=== PATIENT | female | born 1965 | race African-American/Black ===

== ENCOUNTER 2019-04-20 17:27 | Inpatient (IN) | payer OTHER ==
[2019-04-20 18:48] VITALS: BMI 21.1
--- NOTE | 2019-04-20 20:26 | HP ---
"COWS - Scale Resting Pulse: 1= IA 81-100 Sweatin= Chills/Flushing Restless Observation: 0= Sits Still Pupil Size: 2= Moderately Dilated (Pupils = 5 mm) Bone or Joint Aches: 1= Mild Discomfort Runny Nose/ Eye Tearin= None GI Upset > 30mins: 0= None Tremor Observation: 2= Slight Tremor Visible Yawning Observation: 0= None Anxiety or Irritability: 2=Irritable/Anxious Goose Flesh Skin: 0=Smooth Skin COWS Score: 9 CIWA Score Nausea/Vomitin-No Nausea/No Vomiting Muscle Tremors: 3 Anxiety: 4-Mod. Anxious/Guarded Agitation: 1-Slight > Activity Paroxysmal Sweats: 3 (Increased facial moisture) Orientation: 0-Oriented Tacttile Disturbances: 0-None Auditory Disturbances: 0-None Visual Disturbances: 0-None Headache: 0-None Present CIWA-Ar Total Score: 11 - Admission Criteria OASAS Guidelines: Admission for Medically Managed Detox: Requires at least one of the followin. CIWA greater than 12 2. Seizures within the past 24 hours 3. Delirium tremens within the past 24 hours 4. Hallucinations within the past 24 hours 5. Acute intervention needed for co occurring medical disorder 6. Acute intervention needed for co occurring psychiatric disorder 7. Severe withdrawal that cannot be handled at a lower level of care (continued vomiting, continued diarrhea, abnormal vital signs) requiring intravenous medication and/or fluids 8. Patient presents the following: Acute intervention needed for co-occurring med or psych disorder Admission Criteria Met: Admission criteria met Admitting History and Physical - Past Medical History ...LMP: 09/12/11 - Smoking History Smoking history: Current every day smoker Have you smoked in the past 12 months: Yes Aproximately how many cigarettes per day: 5 - Alcohol/Substance Use Hx Alcohol Use: Yes (reports drinking since 33 yo,3 6 packs daily) Admission [facility] Chief Complaint: Here for detox from heroin and alcohol Allergies/Adverse Reactions: Allergies Allergy/AdvReac Type Severity Reaction Status Date / Time No Known Allergies Allergy Verified 04/20/19 18:31 History of Present Illness: 52 yo presents w/heroin withdrawal seeking detox. Last detox in 1-2 months ago. VIVIANA: 0.0 UTox: + FEN/MOP/OXY/MTD/BZO Was on Methadone @ [facility] and left 1 month ago. States dose was 25 mg. States left because relapsed. States just stopped showing up. Methadone in urine - denies recent use despite (+) toxicology. Heroin use began at age 33. Current use 5-6 bags/day. Nasal x 3 weeks. Has a Narcan kit Nicotine use began at age 18's. Currently smokes 4-5 cig/day Alcohol use began at age 18. Drinks 4-5 - 12 oz beers daily. Benzo - denies pills despite presence in urine. PMHX: RPR + (medicated), PPD+; CXR @ [facility]: 02/19/18: Neg. States had a CXR 1 mth ago - wnl. EK02/07/18: Abnormal. MHHx: Anxiety. Insomnia. Depression. On MH meds. Sees a Psych in community. Denies thoughts of harming self or others. Longest period of sobriety two years. Denies hx of seizure or blackouts or overdose. Search Terms: Cintia Abarca, 1965 Search Date: 04/20/2019 08:24:29 PM The Drug Utilization Report below displays all of the controlled substance prescriptions, if any, that your patient has filled in the last twelve months. The information displayed on this report is compiled from pharmacy submissions to the Department, and accurately reflects the information as submitted by the pharmacies. This report was requested by: Lillian Nix | Reference #: [id number] There are no results for the search terms that you entered. Search Terms: Cintia Abarca, 1965 Search Date: 04/20/2019 08:25:15 PM States Searched: [place], [place], [place], [place], [place], [place], [place], [place] The Drug Utilization Report below displays the controlled substance prescriptions, if any, that were dispensed in the indicated state(s). The information displayed on this report is compiled from requests submitted to other states' PMPs, and accurately reflects the information as returned by them. Blank guillen indicate data not provided by other state. This report was requested by: Lillian Nix | Reference #: [id number] There are no results for the search terms that you entered. Exam Limitations: No Limitations - Ebola screening Have you traveled outside of the country in the last 21 days: No (N) Have you had contact with anyone from an Ebola affected area: No Have you been sick,other than usual withdrawal symptoms: No Do you have a fever: No - Review of Systems Constitutional: Changes in sleep (Difficluty fallin and staying asleep), Weight Stable EENT: reports: Blurred Vision, Dental Problems (Dentures. Chews and swallows ok) Respiratory: reports: No Symptoms reported Cardiac: reports: No Symptoms Reported GI: reports: No Symptoms Reported : reports: No Symptoms Reported Musculoskeletal: reports: Back Pain (Chronic intermittent achy LBP. No pain at this time. Unsure of triggers.), Joint Pain (Intermittent achy (L) shoulder pain. Unsure of triggers.) Integumentary: reports: No Symptoms Reported Neuro: reports: No Symptoms reported Endocrine: reports: Increased Thirst Hematology: reports: No Symptoms Reported Psychiatric: reports: Orientated x3, Agitated, Anxious, Depressed ( Denies thoughts of harming self or others.) Patient History - Patient Medical History Hx Anemia: No Hx Asthma: Yes Hx Chronic Obstructive Pulmonary Disease (COPD): No Hx Cancer: No Hx Cardiac Disorders: No Hx Congestive Heart Failure: No Hx Hypertension: No Hx Hypercholesterolemia: Yes Hx Pacemaker: No HX Cerebrovascular Accident: No Hx Seizures: No Hx Dementia: No Hx Diabetes: No Hx Gastrointestinal Disorders: No Hx Liver Disease: No Hx Genitourinary Disorders: No Hx Sexually Transmitted Disorders: No Hx Renal Disease (ESRD): No Hx Thyroid Disease: No Hx Human Immunodeficiency Virus (HIV): No Hx Hepatitis C: No Hx Depression: Yes Hx Suicide Attempt: No Hx Bipolar Disorder: No Hx Schizophrenia: No - Patient Surgical History Past Surgical History: No Hx Neurologic Surgery: No Hx Cataract Extraction: No Hx Cardiac Surgery: No Hx Lung Surgery: No Hx Breast Surgery: No Hx Breast Biopsy: No Hx Abdominal Surgery: No Hx Appendectomy: No Hx Cholecystectomy: No Hx Genitourinary Surgery: No Hx Section: No Hx Orthopedic Surgery: No - PPD History Previous Implant?: Yes (CXR - 02/19/18) Documented Results: Positive w/o proof Implanted On Prior R Admission?: No PPD to be Administered?: No - Reproductive History Patient is a Female of Child Bearing Age (11 -55 yrs old): Yes Last Menstrual Period: 09/12/11 Patient : No - Smoking Cessation Smoking history: Current every day smoker Have you smoked in the past 12 months: Yes Aproximately how many cigarettes per day: 5 Hx Chewing Tobacco Use: No Initiated information on smoking cessation: Yes 'Breaking Loose' booklet given: 04/20/19 - Substance & Tx. History Hx Alcohol Use: Yes Hx Substance Use: Yes Substance Use Type: Alcohol, Heroin, Opiates Hx Substance Use Treatment: Yes (detox, rehab, recent MMTP) - Substances abused Heroin Substance route: Inhalation Frequency: Daily Amount used: 3 to 4 bags Age of first use: 33 Date of last use: 04/20/19 Alcohol Substance route: Oral Frequency: Daily Amount used: 4 to 5 cans /6 packs of beer Age of first use: 18 Date of last use: 04/20/19 Admission Physical Exam S - Vital Signs Vital Signs: Vital Signs - 24 hr 04/20/19 04/20/19 18:38 19:33 Temperature 98.2 F 98.2 F Pulse Rate 87 87 Respiratory 16 16 Rate Blood Pressure 106/68 106/68 - Physical General Appearance: Yes: Nourished, Mild Distress, Tremorous (Mild), Irritable, Sweating (Increased facial moisture), Anxious HEENTM: Yes: EOMI (Jerking movement of eyes upon lateral gaze), Hearing grossly Normal, Normocephalic, Normal Voice, KENNA (Pupils = 5 mm), Pharynx Normal Respiratory: Yes: Lungs Clear (Pulse Ox = 97 %), Normal Breath Sounds, No Respiratory Distress Neck: Yes: No masses,lesions,Nodules, Supple Breast: Yes: Breast Exam Deferred Cardiology: Yes: Regular Rhythm, Regular Rate, S1, S2, Murmur Abdominal: Yes: Non Tender, Flat, Soft, Increased Bowel Sounds Genitourinary: Yes: Within Normal Limits Back: Yes: Normal Inspection Musculoskeletal: Yes: full range of Motion, Gait Steady Extremities: Yes: Normal Capillary Refill 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 NML intact (Jerking movement of eyes upon lateral gaze), Fully Oriented, Alert, Motor Strength 5/5, Normal Response Integumentary: Yes: Normal Color, Warm, Rash (Dry, flaky, thickened skin on legs , feet, arms and hands and), Other (Flaky, skin and cracks between toes) Lymphatic: Yes: Within Normal Limits - Diagnostic (1) History of positive PPD Current Visit: Yes Status: Chronic (2) History of syphilis Current Visit: Yes Status: Chronic (3) Alcohol dependence with withdrawal Current Visit: Yes Status: Acute Qualifiers: Complication of substance-induced condition: uncomplicated Qualified Code(s ): F10.230 - Alcohol dependence with withdrawal, uncomplicated (4) Opioid dependence with withdrawal Current Visit: Yes Status: Acute (5) Nicotine dependence Current Visit: Yes Status: Chronic Qualifiers: Nicotine product type: cigarettes (6) Unspecified nystagmus Current Visit: Yes Status: Acute (7) Cardiac murmur Current Visit: Yes Status: Acute Cleared for Admission [facility] - Detox or Rehab [facility] Level of Care: Medically Managed Detox Regimen/Protocol: Methadone/Librium Claeared for Rehab Admission: No Breathalyzer - Breathalyzer Breathalyzer: 0 Urine Drug Screen - Test Device Lot number: [id number] Expiration date: 12/19/20 - Control Is test valid?: Yes - Results Drug screen NEGATIVE: No Urine drug screen results: FEN-Fentanyl, MOP-Opiates, OXY-Oxycodone, MTD- Methadone, BZO-Benzodiazepines Inpatient Rehab Admission - Rehab Decision to Admit Inpatient rehab admission?: No"
[2019-04-20] MEDS ORDERED: ACETAMINOPHEN 325 MG TABLET (FP) PO PRN ×2 (21:04)
[2019-04-20] MEDS ORDERED: BISMUTH SUBSALICYLATE 524 MG/30 ML UD PO PRN (21:04)
[2019-04-20] MEDS ORDERED: MAG HYDROX/AL HYDROX/SIMETH 30 ML UNIT-DOSE CUP PO PRN (21:04)
[2019-04-20] MEDS ORDERED: MAGNESIUM CITRATE 300 ML BOTTLE PO PRN (21:04)
[2019-04-20] MEDS ORDERED: MENTHOL/PHENOL 1 EACH UD MM PRN (21:04)
[2019-04-20] MEDS ORDERED: MELATONIN 5 MG TABLETS PO PRN (21:04)
[2019-04-20] MEDS ORDERED: MAGNESIUM HYDROX 2400MG/30ML ORAL SUSPENSION 30 ML CUP PO PRN (21:04)
[2019-04-20] MEDS ORDERED: METHADONE (DETOX) 10 MG, METHADONE (DETOX) 5 MG PO ONE (22:15)
[2019-04-20] MEDS ORDERED: METHADONE HCL 5 MG TABLET (FOR DETOX USE ONLY) ONE (22:51)
[2019-04-20] MEDS ORDERED: METHADONE HCL 10 MG TABLET (FOR DETOX USE ONLY) ONE (22:51)
[2019-04-20] MEDS: THIAMINE HCL 100 MG TABLET (FP) PO SCH (22:55)
[2019-04-20] MEDS ORDERED: METHADONE HCL 10 MG TABLET (FOR DETOX USE ONLY) PO ONE (23:00)
[2019-04-20] MEDS ORDERED: QUEtiapine FUMARATE 100 MG TABLET (FP) PO ONE (23:00)
[2019-04-21] MEDS: chlordiazePOXIDE HCL 10 MG CAPSULE PO PRN ×2 (05:50→22:12)
[2019-04-21] MEDS ORDERED: COLLOIDAL OATMEAL 1 BAR EACH TP PRN (08:33)
--- NOTE | 2019-04-21 09:01 | CONSULT ---
[facility] Psychiatric Consult - Data Date of interview: 04/21/19 Admission source: Self-referred Identifying data: Ms Abarca is a 53 years old single Black female, mother of a 31 years old son, unemployed receiving public assistance, homeless seeking detox treatment for alcohol and opioid Substance Abuse History: Reports history of alcohol and heroin use. Refer to addiction counselor's summary for further information Medical History: Significant for bronchial asthma, history of treatment PPD+ and syphilis. Smokes 4-5 cigarettes Psychiatric History: Reports that her first psychiatric contact was as a child when she was diagnosed with ADHD and treated with psychotherapy. Reports being diagnosed with Bipolar Disorder, MDD and Anxiety in 1999 and started on Seroquel and Gabapention. Denies previous psychiatric hospitalization or suicidal atempt. However, reports two previous psychiatric emergency room admissions for observation to [facility] and [facility]. Apparently adherence to OPD care and medications have been suboptimal. Reports taking medications whenever she is admitted to substance abuse programs. [facility] and [facility] [place] [place]. Claims to be prescribed Seroquel 200 m/hs and Gabapentin 300 mg/bid. At present, denies experiencing psychotic, manic symptoms, S/H ideation Physical/Sexual Abuse/Trauma History: Denies history of emotional, physical or sexual abuse as well as DV relationship. Additional Comment: Reports history of multiple previous misdemeanor arrests. Denies being on probation at present Mental Status Exam - Mental Status Exam Alert and Oriented to: Time, Place, Person Cognitive Function: Fair Patient Appearance: Well Groomed Mood: Depressed, Anxious Affect: Appropriate Patient Behavior: Cooperative Speech Pattern: Clear Thought Process: Intact, Goal Oriented Thought Disorder: Not Present Hallucinations: Denies Suicidal Ideation: Denies Homicidal Ideation: Denies Insight/Judgement: Poor Sleep: Poorly Appetite: Poor Muscle strength/Tone: Normal Gait/Station: Normal Psychiatric Findings - Problem List (Perkins 1, 2,3) (1) ADHD (attention deficit hyperactivity disorder) Current Visit: Yes Status: Acute (2) Mood disorder Current Visit: Yes Status: Chronic (3) Bipolar disorder Current Visit: Yes Status: Ruled-out (4) Substance induced mood disorder Current Visit: Yes Status: Acute (5) Substance-induced sleep disorder Current Visit: Yes Status: Acute (6) Alcohol dependence with withdrawal Current Visit: Yes Status: Acute Qualifiers: Complication of substance-induced condition: uncomplicated Qualified Code(s ): F10.230 - Alcohol dependence with withdrawal, uncomplicated (7) Opioid dependence with withdrawal Current Visit: Yes Status: Acute (8) Nicotine dependence Current Visit: Yes Status: Chronic Qualifiers: Nicotine product type: cigarettes (9) Bronchial asthma Current Visit: Yes Status: Chronic (10) History of positive PPD Current Visit: Yes Status: Resolved (11) History of syphilis Current Visit: Yes Status: Resolved - Initial Treatment Plan Initial Treatment Plan: 1) Resume Seroquel 200 mg po HS. 2) Continue inpatient detoxification
[2019-04-21] MEDS: NICOTINE 7 MG/24 HOURS TOPICAL PATCH TD SCH (09:46)
[2019-04-21] MEDS: PRENATAL VITAMINS W/ FOLIC ACID TABLET (FP) PO SCH (09:46)
[2019-04-21] MEDS ORDERED: PETROLATUM, WHITE 30 GM TUBE TP SCH (10:00)
[2019-04-21] MEDS ORDERED: METHADONE HCL 5 MG TABLET (FOR DETOX USE ONLY) PO ONE (10:00)
[2019-04-21 10:12] LABS: HEMATOCRIT 37.7 % (32.4-45.2); HEMOGLOBIN 12.5 GM/dL (10.7-15.3); MCH 30.4 pg (25.7-33.7); MCHC 33.1 g/dl (32.0-36.0); MEAN PLT VOLUME 9.3 fl (7.5-11.1); PLATELET COUNT 227 K/MM3 (134-434); RDW 13.3 % (11.6-15.6); WHITE BLOOD COUNT 5.5 K/mm3 (4.0-10.0)
--- NOTE | 2019-04-21 10:20 | PN ---
[facility] CIWA - CIWA Score Nausea/Vomitin-No Nausea/No Vomiting Muscle Tremors: 3 Anxiety: 3 Agitation: 3 Paroxysmal Sweats: 3 Orientation: 0-Oriented Tacttile Disturbances: 0-None Auditory Disturbances: 0-None Visual Disturbances: 0-None Headache: 0-None Present CIWA-Ar Total Score: 12 BHS COWS - Scale Resting Pulse: 0= [place] 80 or Below Sweatin= Chills/Flushing Restless Observation: 1= Difficult to Sit Still Pupil Size: 0= Normal to Room Light Bone or Joint Aches: 2= Severe Diffuse Aches Runny Nose/ Eye Tearin= None GI Upset > 30mins: 0= None Tremor Observation of Outstretched Hands: 2= Slight Tremor Visible Yawning Observation: 2= >3x During Session Anxiety or Irritability: 2=Irritable/Anxious Goose Flesh Skin: 0=Smooth Skin COWS Score: 10 BHS Progress Note (SOAP) Subjective: sweats shakes interrupted sleep body aches dry skin/eczema irritable Objective: 04/21/19 10:19 Vital Signs Temperature 97.2 F L 04/21/19 09:35 Pulse Rate 77 04/21/19 09:35 Respiratory Rate 18 04/21/19 09:35 Blood Pressure 111/62 04/21/19 09:35 O2 Sat by Pulse Oximetry (%) Laboratory Tests 04/21/19 08:00 WBC 5.5 RBC 4.10 Hgb 12.5 Hct 37.7 MCV 92.0 MCH 30.4 MCHC 33.1 RDW 13.3 Plt Count 227 MPV 9.3 rest of labs pending aaox3 ambulating no acute distress Assessment: 04/21/19 10:20 withdrawals Plan: continue detox increase fluids lac-hydrin ordered aveeno soap
[2019-04-21 11:06] LABS: ALBUMIN 3.5 g/dl (3.4-5.0); BILIRUBIN,TOTAL 0.3 mg/dL (0.2-1); BLOOD UREA NITROGEN 8.2 mg/dL (7-18); CREATININE 0.8 mg/dL (0.55-1.3); TOT PROT 6.6 g/dl (6.4-8.2)
[2019-04-21 11:45] LABS: RPR REACTIVE 1:1 (NONREACTIVE)
[2019-04-21 11:46] LABS: TREPONEMA ANTIBODY PREVIOUSLY REACTIVE (NONREACTIVE)
--- NOTE | 2019-04-21 12:25 | EKG ---
Test Reason : Blood Pressure : / mmHG Vent. Rate : 074 BPM Atrial Rate : 074 BPM P-R Int : 136 ms QRS Dur : 086 ms QT Int : 424 ms P-R-T Axes : 076 071 073 degrees QTc Int : 470 ms NORMAL SINUS RHYTHM NORMAL ECG WHEN COMPARED WITH ECG OF 28-JAN-2018 21:45, NO SIGNIFICANT CHANGE WAS FOUND Confirmed by BESSIE CONTRERAS MD ([id number]) on 04/21/2019 12:24:45 PM Referred By: Confirmed By:BESSIE CONTRERAS MD
[2019-04-21] MEDS: AMMONIUM LACTATE 12% LOTION 225 GM BOTTLE TP PRN (12:40)
[2019-04-21] MEDS: QUEtiapine FUMARATE 200 MG TABLET PO SCH (22:10)
[2019-04-21] MEDS: THIAMINE HCL 100 MG TABLET (FP) PO SCH (22:10)
[2019-04-22] MEDS: IBUPROFEN 400 MG TABLET (FP) PO PRN (06:01)
[2019-04-22] MEDS ORDERED: METHADONE HCL 10 MG TABLET (FOR DETOX USE ONLY) PO ONE (10:00)
[2019-04-22] MEDS: NICOTINE 7 MG/24 HOURS TOPICAL PATCH TD SCH (10:44)
[2019-04-22] MEDS: PRENATAL VITAMINS W/ FOLIC ACID TABLET (FP) PO SCH (10:45)
--- NOTE | 2019-04-22 12:13 | PN ---
[facility] CIWA - CIWA Score Nausea/Vomitin-No Nausea/No Vomiting Muscle Tremors: 2 Anxiety: 2 Agitation: 2 Paroxysmal Sweats: 2 Orientation: 0-Oriented Tacttile Disturbances: 0-None Auditory Disturbances: 0-None Visual Disturbances: 0-None Headache: 0-None Present CIWA-Ar Total Score: 8 BHS COWS - Scale Resting Pulse: 0= [place] 80 or Below Sweatin= Chills/Flushing Restless Observation: 1= Difficult to Sit Still Pupil Size: 0= Normal to Room Light Bone or Joint Aches: 1= Mild Discomfort Runny Nose/ Eye Tearin= Nasal Congestion GI Upset > 30mins: 0= None Tremor Observation of Outstretched Hands: 1= Tremor [place], Not Seen Yawning Observation: 1= 1-2x During Session Anxiety or Irritability: 1=Feels Anxious/Irritable Goose Flesh Skin: 0=Smooth Skin COWS Score: 7 S Progress Note (SOAP) Subjective: irritable agitation sweats irritable Objective: 04/22/19 12:12 Vital Signs Temperature 96.3 F L 04/22/19 09:42 Pulse Rate 70 04/22/19 09:42 Respiratory Rate 18 04/22/19 09:42 Blood Pressure 112/72 04/22/19 09:42 O2 Sat by Pulse Oximetry (%) Laboratory Tests 04/21/19 04/21/19 04/21/19 08:00 08:00 08:00 WBC 5.5 RBC 4.10 Hgb 12.5 Hct 37.7 MCV 92.0 MCH 30.4 MCHC 33.1 RDW 13.3 Plt Count 227 MPV 9.3 Sodium 140 Potassium 4.0 Chloride 104 Carbon Dioxide 30 Anion Gap 6 L BUN 8.2 Creatinine 0.8 Est GFR (CKD-EPI)AfAm 96.19 Est GFR (CKD-EPI)NonAf 83.00 Random Glucose 85 Calcium 9.0 Total Bilirubin 0.3 AST 23 ALT 27 Alkaline Phosphatase 96 Total Protein 6.6 Albumin 3.5 RPR Titer Reactive 1:1 H T.pallidum Ab (MHA) Previously reactive aaox3 ambulating no acute distress Assessment: 04/22/19 12:13 withdrawals Plan: continue detox increase fluids
[2019-04-22] MEDS: AMMONIUM LACTATE 12% LOTION 225 GM BOTTLE TP PRN (22:09)
[2019-04-22] MEDS: chlordiazePOXIDE HCL 10 MG CAPSULE PO PRN (22:11)
[2019-04-22] MEDS: THIAMINE HCL 100 MG TABLET (FP) PO SCH (22:11)
[2019-04-22] MEDS: QUEtiapine FUMARATE 200 MG TABLET PO SCH (22:11)
[2019-04-23] MEDS ORDERED: METHADONE HCL 5 MG TABLET (FOR DETOX USE ONLY) PO ONE (06:00)
--- NOTE | 2019-04-23 08:52 | DS ---
[facility] Detox Discharge Summary Admission Date: 04/20/19 Discharge Date: 04/23/19 - History Present History: Alcohol Dependence, Cocaine Dependence, Opioid Dependence - Physical Exam Results Vital Signs: Vital Signs Temperature 97.7 F 04/23/19 05:46 Pulse Rate 73 04/23/19 05:46 Respiratory Rate 16 04/23/19 05:46 Blood Pressure 120/76 04/23/19 05:46 O2 Sat by Pulse Oximetry (%) Pertinent Admission Physical Exam Findings: pt arrived in withdrawals Vital Signs Temperature 97.7 F 04/23/19 05:46 Pulse Rate 73 04/23/19 05:46 Respiratory Rate 16 04/23/19 05:46 Blood Pressure 120/76 04/23/19 05:46 O2 Sat by Pulse Oximetry (%) Laboratory Tests 04/21/19 04/21/19 04/21/19 08:00 08:00 08:00 WBC 5.5 RBC 4.10 Hgb 12.5 Hct 37.7 MCV 92.0 MCH 30.4 MCHC 33.1 RDW 13.3 Plt Count 227 MPV 9.3 Sodium 140 Potassium 4.0 Chloride 104 Carbon Dioxide 30 Anion Gap 6 L BUN 8.2 Creatinine 0.8 Est GFR (CKD-EPI)AfAm 96.19 Est GFR (CKD-EPI)NonAf 83.00 Random Glucose 85 Calcium 9.0 Total Bilirubin 0.3 AST 23 ALT 27 Alkaline Phosphatase 96 Total Protein 6.6 Albumin 3.5 RPR Titer Reactive 1:1 H T.pallidum Ab (MHA) Previously reactive today pt is aaox3 ambulating no acute distress no s/s of withdrawals - Treatment Hospital Course: Detox Protocol Followed, Detoxed Safely, Responded well, Discharged Condition Good, Rehab Referral Accepted - Medication Discharge Medications: Ambulatory Orders Albuterol Sulfate Inhaler - [Ventolin HFA Inhaler -] 2 puff IH Q4H PRN 01/28/18 Melatonin 5 mg PO HS 01/28/18 Gabapentin 100 mg PO TID 01/29/18 Quetiapine Fumarate "Xr" [Seroquel XR] 200 mg PO HS 01/29/18 Gabapentin [Neurontin -] 400 mg PO TID #90 capsule 02/10/18 Mirtazapine [Remeron -] 25 mg PO HS 04/20/19 - Diagnosis (1) ADHD (attention deficit hyperactivity disorder) Current Visit: Yes Status: Acute (2) Alcohol dependence with withdrawal Current Visit: Yes Status: Chronic Qualifiers: Complication of substance-induced condition: uncomplicated Qualified Code(s ): F10.230 - Alcohol dependence with withdrawal, uncomplicated (3) Cardiac murmur Current Visit: Yes Status: Acute (4) Opioid dependence with withdrawal Current Visit: Yes Status: Chronic (5) Substance induced mood disorder Current Visit: Yes Status: Acute (6) Substance-induced sleep disorder Current Visit: Yes Status: Acute (7) Bronchial asthma Current Visit: Yes Status: Chronic (8) Mood disorder Current Visit: Yes Status: Chronic (9) Nicotine dependence Current Visit: Yes Status: Chronic Qualifiers: Nicotine product type: cigarettes Substance use status: uncomplicated Qualified Code(s): F17.210 - Nicotine dependence, cigarettes, uncomplicated (10) History of positive PPD Current Visit: Yes Status: Resolved (11) History of syphilis Current Visit: Yes Status: Resolved (12) Bipolar disorder Current Visit: Yes Status: Ruled-out (13) Depressed mood Current Visit: No Status: Acute (14) Asthma Current Visit: No Status: Chronic Qualifiers: (15) Bipolar II disorder Current Visit: No Status: Chronic (16) Cocaine dependence Current Visit: Yes Status: Chronic Qualifiers: Substance use status: uncomplicated Qualified Code(s): F14.20 - Cocaine dependence, uncomplicated (17) Opioid dependence Current Visit: Yes Status: Chronic Qualifiers: Substance use status: uncomplicated Qualified Code(s): F11.20 - Opioid dependence, uncomplicated (18) Positive PPD Current Visit: No Status: Inactive - AMA Did Patient Leave Against Medical Advice: No
[2019-04-23 09:31] VITALS: BP 108/70; PULSE 81; TEMP 97.9
[2019-04-23] MEDS: IBUPROFEN 400 MG TABLET (FP) PO PRN (09:52)
[2019-04-23] MEDS: NICOTINE 7 MG/24 HOURS TOPICAL PATCH TD SCH (10:29)
[2019-04-23] MEDS: PRENATAL VITAMINS W/ FOLIC ACID TABLET (FP) PO SCH (10:29)
== END 2019-04-23 12:05 | disposition other institution (70) | DRG 773 ==
LOC: YASAS 17:27 → Y6N 20:19
PROVIDERS: ADMIT Allergy & Immunology; ATTEND Allergy & Immunology
PROC: HZ2ZZZZ Detoxification Services for Substance Abuse Treatment (ICD-10-PCS; principal; 2019-04-20)
DX: F11.23 Opioid dependence with withdrawal (principal); F10.230 Alcohol dependence with withdrawal, uncomplicated; F14.20 Cocaine dependence, uncomplicated; F17.210 Nicotine dependence, cigarettes, uncomplicated; F90.9 Attention-deficit hyperactivity disorder, unspecified type; F19.24 Other psychoactive substance dependence with psychoactive substance-induced mood disorder; F19.282 Other psychoactive substance dependence with psychoactive substance-induced sleep disorder; F39 Unspecified mood [affective] disorder; F31.81 Bipolar II disorder; R01.1 Cardiac murmur, unspecified; J45.909 Unspecified asthma, uncomplicated; R76.11 Nonspecific reaction to tuberculin skin test without active tuberculosis; H55.00 Unspecified nystagmus; Z87.42 Personal history of other diseases of the female genital tract
CPT/HCPCS: 36415; 80053; 85027; 86593; 86780; 93005; 93010

== ENCOUNTER 2019-04-23 12:01 | Inpatient (IN) | payer OTHER ==
--- NOTE | 2019-04-23 11:47 | HP ---
[facility] Rehab Assess/Revision - Admission History Ad[facility] to Rehab [facility] - Findings Detox History & Physical reviewed: Yes Concur with findings: Yes Inpatient Rehab Admission - Rehab Decision to Admit Inpatient rehab admission?: Yes - Initial Determination Are CD services needed?: Yes Free of communicable disease: Yes Not in need of hospitalization: Yes - Rehab Admission Criteria Previous failed treatment: Yes Poor recovery environment: Yes Comorbidities: Yes Lacks judgement: Yes Patient is meeting Inpatient Rehab admission criteria:: Yes
[~2019-04-23 12:01] MED LIST: ALBUTEROL SO4 8 GM HFA INHALER IH PRN; LOPERAMIDE HCL 2 MG CAPSULE PO PRN; MAG HYDROX/AL HYDROX/SIMETH 30 ML UNIT-DOSE CUP PO PRN; MAGNESIUM CITRATE 300 ML BOTTLE PO PRN; MAGNESIUM HYDROX 2400MG/30ML ORAL SUSPENSION 30 ML CUP PO PRN; MENTHOL/PHENOL 1 EACH UD MM PRN; NICOTINE POLACRILEX 4 MG GUM BUC PRN; P-EPHED 60MG/TRIPROLIDI 2.5MG TABLET PO PRN; guaiFENesin 200 MG/10 ML 10 ML UNIT-DOSE CUPS PO PRN
[2019-04-23] MEDS ORDERED: COLLOIDAL OATMEAL 1 BAR EACH TP ONE (13:00)
[2019-04-23] MEDS ORDERED: PT OWN MED DRAWER 7, Y5N ONE ×2 (16:55→23:25)
[2019-04-23] MEDS: AMMONIUM LACTATE 12% LOTION 225 GM BOTTLE TP PRN (16:55)
[2019-04-23] MEDS: MELATONIN 5 MG TABLETS PO PRN (21:03)
[2019-04-23] MEDS: THIAMINE HCL 100 MG TABLET (FP) PO SCH (21:03)
[2019-04-23] MEDS: QUEtiapine FUMARATE 200 MG TABLET PO SCH (21:03)
[2019-04-24] MEDS: PRENATAL VITAMINS W/ FOLIC ACID TABLET (FP) PO SCH (09:10)
[2019-04-24] MEDS: NICOTINE 21 MG/24 HOURS TOPICAL PATCH TD SCH (09:10)
[2019-04-24] MEDS: hydrOXYzine PAMOATE 50 MG CAPSULE (FP) PO PRN ×2 (11:13→21:42)
[2019-04-24] MEDS: THIAMINE HCL 100 MG TABLET (FP) PO SCH (21:41)
[2019-04-24] MEDS: QUEtiapine FUMARATE 200 MG TABLET PO SCH (21:41)
[2019-04-25] MEDS: ACETAMINOPHEN 325 MG TABLET (FP) PO PRN (06:48)
[2019-04-25] MEDS: NICOTINE 21 MG/24 HOURS TOPICAL PATCH TD SCH (09:56)
[2019-04-25] MEDS: COLLOIDAL OATMEAL 1 BAR EACH TP PRN (09:56)
[2019-04-25] MEDS: hydrOXYzine PAMOATE 50 MG CAPSULE (FP) PO PRN ×3 (09:57→21:51)
[2019-04-25] MEDS: PRENATAL VITAMINS W/ FOLIC ACID TABLET (FP) PO SCH (09:57)
[2019-04-25] MEDS ORDERED: PT OWN MED DRAWER 7, Y5N ONE ×2 (21:03→22:25)
[2019-04-25] MEDS: THIAMINE HCL 100 MG TABLET (FP) PO SCH (21:51)
[2019-04-25] MEDS: QUEtiapine FUMARATE 200 MG TABLET PO SCH (21:51)
--- NOTE | 2019-04-26 09:17 | CONSULT ---
[facility] Psychiatric Consult - Data Date of interview: 04/26/19 Admission source: [facility] Identifying data: Patient is a 54 year old single female, mother of one, unemployed, homeless, and is supported by public assistance. This is one of multiple admissions for patient. Patient admitted to for opiate dependence. Substance Abuse History: - Smoking Cessation. Smoking history: Current every day smoker. Have you smoked in the past 12 months: Yes. Aproximately how many cigarettes per day: 5. Hx Chewing Tobacco Use: No. Initiated information on smoking cessation: Yes. 'Breaking Loose' booklet given: 04/20/19. - Substance & Tx. History. Hx Alcohol Use: Yes. Hx Substance Use: Yes. Substance Use Type : Alcohol, Heroin, Opiates. Hx Substance Use Treatment: Yes (detox, rehab, recent [facility]). - Substances abused. Heroin. Substance route: Inhalation. Frequency: Daily. Amount used: 3 to 4 bags. Age of first use: 33. Date of last use: 04/20/19. Alcohol. Substance route: Oral. Frequency: Daily. Amount used: 4 to 5 cans /6 packs of beer. Age of first use: 18. Date of last use: 04/20/19 Medical History: Significant for bronchial asthma, history of treatment PPD+ and syphilis. Psychiatric History: Patient's [facility] the age of 11. She reports seeing a psychiatrist due to her restlessness behavior, agitation and difficulty focusing. Patient unable to recall her diagnosis and medications prescribed. As an adult Ms. Abarca reports history of three psychiatric hospitalizations from [id number] ([facility], [facility], and most recently [facility]). She reports being hospitalized secondary to depression and mood dyregulation. Ms. Abarca reports past diagnosis of anxiety, depression and bipolar disorder. Her most recent outpatient psychiatric care was by Dr. Barajas one year ago. She reports being prescribed Seroquel 400mg + gabapentin 300mg BID. Since discontinuing her outpatient treatment, Ms. Abarca has been receiving refills from rehab facilities , most recently at the residential program at [place], [place] five months ago in which she was prescribed seroquel 200mg HS + Gabapentin 300mg BID. Patient seen by Dr. Jolly while in detox and was resumed on Seroquel 200mg HS. Patient currently reports difficulty sleeping, feeling sad and irritable. Reports sleeping 3-4 hours per night and is awaking up with lots of energy. No josette noted but patient is slightly irritable. Patient denies history of suicide attempt. Physical/Sexual Abuse/Trauma History: denies. Mental Status Exam - Mental Status Exam Alert and Oriented to: Time, Place, Person Cognitive Function: Good Patient Appearance: Well Groomed Mood: Irritable Affect: Appropriate Patient Behavior: Cooperative Speech Pattern: Appropriate Voice Loudness: Normal Thought Process: Goal Oriented Thought Disorder: Not Present Hallucinations: Denies Suicidal Ideation: Denies Homicidal Ideation: Denies Insight/Judgement: Poor Sleep: Poorly Appetite: Fair Muscle strength/Tone: Normal Gait/Station: Normal Psychiatric Findings - Problem List ([place] 1, 2,3) (1) ADHD (attention deficit hyperactivity disorder) Current Visit: Yes Status: Suspected (2) Substance induced mood disorder Current Visit: Yes Status: Acute (3) Substance-induced sleep disorder Current Visit: Yes Status: Acute (4) Mood disorder Current Visit: Yes Status: Chronic (5) Opioid dependence Current Visit: Yes Status: Chronic Qualifiers: Substance use status: uncomplicated Qualified Code(s): F11.20 - Opioid dependence, uncomplicated - Initial Treatment Plan Initial Treatment Plan: Psychoeducation provided. Detoxification in progress. Will d/c seroquel 200mg HS. Will order Seroquel 300mg HS + gabapentin 200mg BID. Benefits and side effects discussed. Verbal consent given.
[2019-04-26] MEDS ORDERED: PT OWN MED DRAWER 7, Y5N ONE ×2 (10:24→16:55)
[2019-04-26] MEDS: NICOTINE 21 MG/24 HOURS TOPICAL PATCH TD SCH (10:26)
[2019-04-26] MEDS: PRENATAL VITAMINS W/ FOLIC ACID TABLET (FP) PO SCH (10:26)
[2019-04-26] MEDS: hydrOXYzine PAMOATE 50 MG CAPSULE (FP) PO PRN ×2 (10:27→21:41)
[2019-04-26] MEDS: GABAPENTIN 100 MG CAPSULE (FP) PO SCH ×2 (11:00→21:41)
[2019-04-26] MEDS: AMMONIUM LACTATE 12% LOTION 225 GM BOTTLE TP PRN (16:56)
[2019-04-26] MEDS: QUEtiapine FUMARATE 300 MG TABLET PO SCH (21:42)
[2019-04-26] MEDS: THIAMINE HCL 100 MG TABLET (FP) PO SCH (21:43)
[2019-04-27] MEDS: GABAPENTIN 100 MG CAPSULE (FP) PO SCH ×2 (09:28→21:31)
[2019-04-27] MEDS: PRENATAL VITAMINS W/ FOLIC ACID TABLET (FP) PO SCH (09:28)
[2019-04-27] MEDS: hydrOXYzine PAMOATE 50 MG CAPSULE (FP) PO PRN ×2 (09:29→21:31)
[2019-04-27] MEDS: NICOTINE 21 MG/24 HOURS TOPICAL PATCH TD SCH (09:29)
[2019-04-27] MEDS: QUEtiapine FUMARATE 300 MG TABLET PO SCH (21:31)
[2019-04-27] MEDS: THIAMINE HCL 100 MG TABLET (FP) PO SCH (21:32)
[2019-04-28] MEDS: PRENATAL VITAMINS W/ FOLIC ACID TABLET (FP) PO SCH (10:59)
[2019-04-28] MEDS: GABAPENTIN 100 MG CAPSULE (FP) PO SCH ×2 (10:59→23:15)
[2019-04-28] MEDS: NICOTINE 21 MG/24 HOURS TOPICAL PATCH TD SCH (10:59)
[2019-04-28] MEDS: IBUPROFEN 400 MG TABLET (FP) PO PRN (11:03)
[2019-04-28] MEDS: COLLOIDAL OATMEAL 1 BAR EACH TP PRN (11:08)
[2019-04-28] MEDS: QUEtiapine FUMARATE 300 MG TABLET PO SCH (23:15)
[2019-04-28] MEDS: THIAMINE HCL 100 MG TABLET (FP) PO SCH (23:15)
[2019-04-29] MEDS: IBUPROFEN 400 MG TABLET (FP) PO PRN (06:35)
[2019-04-29] MEDS: hydrOXYzine PAMOATE 50 MG CAPSULE (FP) PO PRN (06:35)
[2019-04-29] MEDS ORDERED: PT OWN MED DRAWER 7, Y5N ONE ×2 (07:07→19:27)
[2019-04-29] MEDS: NICOTINE 21 MG/24 HOURS TOPICAL PATCH TD SCH (09:46)
[2019-04-29] MEDS: GABAPENTIN 100 MG CAPSULE (FP) PO SCH ×2 (09:46→21:32)
[2019-04-29] MEDS: PRENATAL VITAMINS W/ FOLIC ACID TABLET (FP) PO SCH (09:47)
[2019-04-29] MEDS: ACETAMINOPHEN 325 MG TABLET (FP) PO PRN (09:48)
--- NOTE | 2019-04-29 12:05 | PN ---
Psychiatric Progress Note Vital Signs: Vital Signs Period Temp Pulse Resp BP Sys/Medina Pulse Ox Last 24 Hr 97.8 F 78 16-18 116/65 Date of Session: 04/29/19 Chief Complaint:: " I want to be taken off seroquel." HPI: Patient admitted to rehab on [facility] for alcohol and opioid dependence. Patient requesting a switch in medications due to feeling lethargic and sedated. ROS: Patient is coherent, alert + oriented X3. Current Medications: Active Medications Generic Name Dose Route Start Last Admin Trade Name Freq PRN Reason Stop Dose Admin Acetaminophen 650 mg 04/23/19 11:47 04/29/19 09:48 Tylenol - PO 650 mg Q4H PRN Administration FEVER Al Hydroxide/Mg Hydroxide 30 ml 04/23/19 11:47 Mylanta Oral Suspension - PO Q6H PRN DYSPEPSIA Albuterol Sulfate 2 puff 04/23/19 11:51 04/29/19 07:10 Ventolin Hfa Inhaler - IH 2 puff Q4H PRN Administration SHORT OF BREATH/WHEEZING Colloidal Oatmeal 1 applic 04/25/19 08:39 04/28/19 11:08 Aveeno Soap - TP 1 bar DAILY PRN Administration HYGEINE Eucalyptus/Menthol/Phenol/Sorbitol 1 each 04/23/19 11:47 Cepastat Lozenge - MM Q4H PRN SORE THROAT Gabapentin 200 mg 04/26/19 10:30 04/29/19 09:46 Neurontin - PO 200 mg BID ALEC Administration Guaifenesin 10 ml 04/23/19 11:47 Robitussin - PO Q6H PRN COUGH Hydroxyzine Pamoate 50 mg 04/23/19 11:47 04/29/19 06:35 Vistaril - PO 50 mg Q4H PRN Administration AGITATION Ibuprofen 400 mg 04/23/19 11:47 04/29/19 06:35 Motrin - PO 400 mg Q6H PRN Administration Pain Level 4-6 Lactic Acid 1 applic 04/23/19 11:50 04/26/19 16:56 Lac-Hydrin 12 TP 1 applic BID PRN Administration DRY SKIN Loperamide HCl 4 mg 04/23/19 11:47 Imodium - PO Q6H PRN DIARRHEA Magnesium Citrate 300 ml 04/23/19 11:47 Citroma - PO Q48H PRN CONSTIPATION Magnesium Hydroxide 30 ml 04/23/19 11:47 Milk Of Magnesia - PO DAILY PRN CONSTIPATION Melatonin 5 mg 04/23/19 22:00 04/23/19 21:03 Melatonin PO 5 mg HS PRN Administration INSOMNIA Nicotine 21 mg 04/24/19 10:00 04/29/19 09:46 Nicoderm Patch - TD Not Given DAILY ALEC Nicotine Polacrilex 4 mg 04/23/19 11:47 Nicorette Gum - BUC Q2H PRN NICOTINE REPLACEMENT RX Multivit/Folic Acid/Iron 1 tab 04/24/19 10:00 04/29/19 09:47 Vitamins (Sjr) - PO Not Given DAILY ALEC Pseudoephedrine/Triprolidine 1 combo 04/23/19 11:47 Actifed - PO TID PRN NASAL CONGESTION Quetiapine Fumarate 300 mg 04/26/19 22:00 04/28/19 23:15 Seroquel - PO Not Given HS ALEC Thiamine HCl 100 mg 04/23/19 22:00 04/28/19 23:15 Vitamin B1 - PO Not Given HS ALEC Medication(s) Change(s): Yes. Current Side Effect: No Lab tests ordered: No Lab tests reviewed: Yes Provider note:: Patient requesting to be taken off seroquel. Patient resumed on seroquel 200mg while in detox after reporting taking it while at [facility] in [facility]. Patient then seen by bid writer while in rehab and seroquel was increased to 300mg after patient reported feeling irritable and stated that she was previously accepting seroquel 300mg before admission to detox at [facility]. Patient is now stating to bid writer that she has not taken seroquel in nearly one year and was only prescribed remeron 30mg while at [facility]. Patient is an unreliable historian as her history which she is speaking of today is not consistent with what was mentioned during her initial consultation. Patient reports feeling lethargic and tired from accepting seroquel. Assembler Camper attempted to lower seroquel dose but patient refused. Patient educated on the differences of type of medications (antipsychotics and antidepressant) but is unwilling to continue to accept seroquel. Will d/c Seroquel 300mg and will order Remeron 15mg HS. No psychosis noted. Total face to face time:: 25 Mental Status Exam - Mental Status Exam Alert and Oriented to: Time, Place, Person Cognitive Function: Good Patient Appearance: Well Groomed Mood: Withdrawn Affect: Mood Congruent Patient Behavior: Fatigued Speech Pattern: Clear Voice Loudness: Moderately Soft/Quiet Thought Process: Goal Oriented Thought Disorder: Not Present Hallucinations: Denies Suicidal Ideation: Denies Homicidal Ideation: Denies Insight/Judgement: Poor Sleep: Fair Appetite: Fair Muscle strength/Tone: Normal Gait/Station: Normal Psychiatric Treatment Plan - Problem List (1) ADHD (attention deficit hyperactivity disorder) Current Visit: Yes (2) Substance induced mood disorder Current Visit: Yes (3) Substance-induced sleep disorder Current Visit: Yes (4) Mood disorder Current Visit: Yes (5) Opioid dependence Current Visit: Yes Qualifiers: Substance use status: uncomplicated Qualified Code(s): F11.20 - Opioid dependence, uncomplicated
[2019-04-29] MEDS: MIRTAZAPINE 15 MG TABLET (FP) PO SCH (21:32)
[2019-04-29] MEDS: MELATONIN 5 MG TABLETS PO PRN (21:32)
[2019-04-29] MEDS: THIAMINE HCL 100 MG TABLET (FP) PO SCH (21:32)
[2019-04-30] MEDS: IBUPROFEN 400 MG TABLET (FP) PO PRN (07:07)
[2019-04-30] MEDS: hydrOXYzine PAMOATE 50 MG CAPSULE (FP) PO PRN ×2 (07:07→21:17)
[2019-04-30] MEDS: PRENATAL VITAMINS W/ FOLIC ACID TABLET (FP) PO SCH (10:45)
[2019-04-30] MEDS: NICOTINE 21 MG/24 HOURS TOPICAL PATCH TD SCH (10:45)
[2019-04-30] MEDS: GABAPENTIN 100 MG CAPSULE (FP) PO SCH ×2 (10:45→21:17)
[2019-04-30] MEDS ORDERED: PT OWN MED DRAWER 7, Y5N ONE ×2 (20:58→23:12)
[2019-04-30] MEDS: MIRTAZAPINE 15 MG TABLET (FP) PO SCH (21:17)
[2019-04-30] MEDS: THIAMINE HCL 100 MG TABLET (FP) PO SCH (21:17)
[2019-05-01] MEDS: PRENATAL VITAMINS W/ FOLIC ACID TABLET (FP) PO SCH (09:38)
[2019-05-01] MEDS: hydrOXYzine PAMOATE 50 MG CAPSULE (FP) PO PRN ×2 (09:39→21:44)
[2019-05-01] MEDS: NICOTINE 21 MG/24 HOURS TOPICAL PATCH TD SCH (09:39)
[2019-05-01] MEDS: GABAPENTIN 100 MG CAPSULE (FP) PO SCH ×2 (09:39→21:45)
[2019-05-01] MEDS: THIAMINE HCL 100 MG TABLET (FP) PO SCH (21:43)
[2019-05-01] MEDS: MIRTAZAPINE 15 MG TABLET (FP) PO SCH (21:44)
[2019-05-01] MEDS ORDERED: PT OWN MED DRAWER 7, Y5N ONE (21:52)
[2019-05-02] MEDS: IBUPROFEN 400 MG TABLET (FP) PO PRN ×2 (06:41→13:45)
[2019-05-02] MEDS: PRENATAL VITAMINS W/ FOLIC ACID TABLET (FP) PO SCH (09:29)
[2019-05-02] MEDS: GABAPENTIN 100 MG CAPSULE (FP) PO SCH ×2 (09:29→21:36)
[2019-05-02] MEDS: NICOTINE 21 MG/24 HOURS TOPICAL PATCH TD SCH (09:46)
[2019-05-02] MEDS ORDERED: PT OWN MED DRAWER 7, Y5N ONE (21:07)
[2019-05-02] MEDS: THIAMINE HCL 100 MG TABLET (FP) PO SCH (21:36)
[2019-05-02] MEDS: MIRTAZAPINE 15 MG TABLET (FP) PO SCH (21:36)
[2019-05-03] MEDS: IBUPROFEN 400 MG TABLET (FP) PO PRN (06:33)
[2019-05-03 07:00] VITALS: TEMP 98
[2019-05-03] MEDS ORDERED: PT OWN MED DRAWER 7, Y5N ONE (08:52)
[2019-05-03] MEDS: NICOTINE 21 MG/24 HOURS TOPICAL PATCH TD SCH (10:02)
[2019-05-03] MEDS: PRENATAL VITAMINS W/ FOLIC ACID TABLET (FP) PO SCH (10:03)
[2019-05-03] MEDS: hydrOXYzine PAMOATE 50 MG CAPSULE (FP) PO PRN ×2 (10:03→21:13)
[2019-05-03] MEDS: GABAPENTIN 100 MG CAPSULE (FP) PO SCH ×2 (10:04→21:12)
--- NOTE | 2019-05-03 10:48 | PN ---
[facility] Progress Note Note: Psychiatric nurse practitoner note: Patient reports receiving remeron 30mg while receiving treatment at residential program at [place], [place] five months ago. Stated to bid writer that she felt satisifed with remeron 30mg. States that it made her mood stable and her sleep was sufficient. Will d/c Remeron 15mg HS. Will order Remeron 30mg HS. Benefits and side effects discussed. Verbal consent given.
--- NOTE | 2019-05-03 11:07 | PN ---
Psychiatric Progress Note Vital Signs: Vital Signs Period Temp Pulse Resp BP Sys/Medina Pulse Ox Last 24 Hr 98.0 F 94 16-16 141/67 Date of Session: 05/03/19 Chief Complaint:: " Can my remeron be increased." HPI: Patient admitted to [facility] for opiate dependence. ROS: Patient is coherent, alert + oriented X3. Current Medications: Active Medications Generic Name Dose Route Start Last Admin Trade Name Freq PRN Reason Stop Dose Admin Acetaminophen 650 mg 04/23/19 11:47 04/29/19 09:48 Tylenol - PO 650 mg Q4H PRN Administration FEVER Al Hydroxide/Mg Hydroxide 30 ml 04/23/19 11:47 Mylanta Oral Suspension - PO Q6H PRN DYSPEPSIA Albuterol Sulfate 2 puff 04/23/19 11:51 04/29/19 07:10 Ventolin Hfa Inhaler - IH 2 puff Q4H PRN Administration SHORT OF BREATH/WHEEZING Colloidal Oatmeal 1 applic 04/25/19 08:39 04/28/19 11:08 Aveeno Soap - TP 1 bar DAILY PRN Administration HYGEINE Eucalyptus/Menthol/Phenol/Sorbitol 1 each 04/23/19 11:47 Cepastat Lozenge - MM Q4H PRN SORE THROAT Gabapentin 200 mg 04/26/19 10:30 05/03/19 10:04 Neurontin - PO Not Given BID ALEC Guaifenesin 10 ml 04/23/19 11:47 Robitussin - PO Q6H PRN COUGH Hydroxyzine Pamoate 50 mg 04/23/19 11:47 05/03/19 10:03 Vistaril - PO 50 mg Q4H PRN Administration AGITATION Ibuprofen 400 mg 04/23/19 11:47 05/03/19 06:33 Motrin - PO 400 mg Q6H PRN Administration Pain Level 4-6 Lactic Acid 1 applic 04/23/19 11:50 04/26/19 16:56 Lac-Hydrin 12 TP 1 applic BID PRN Administration DRY SKIN Loperamide HCl 4 mg 04/23/19 11:47 Imodium - PO Q6H PRN DIARRHEA Magnesium Citrate 300 ml 04/23/19 11:47 Citroma - PO Q48H PRN CONSTIPATION Magnesium Hydroxide 30 ml 04/23/19 11:47 Milk Of Magnesia - PO DAILY PRN CONSTIPATION Melatonin 5 mg 04/23/19 22:00 04/29/19 21:32 Melatonin PO 5 mg HS PRN Administration INSOMNIA Mirtazapine 30 mg 05/03/19 22:00 Remeron - PO HS ALEC Nicotine 21 mg 04/24/19 10:00 05/03/19 10:02 Nicoderm Patch - TD Not Given DAILY ALEC Nicotine Polacrilex 4 mg 04/23/19 11:47 Nicorette Gum - BUC Q2H PRN NICOTINE REPLACEMENT RX Multivit/Folic Acid/Iron 1 tab 04/24/19 10:00 05/03/19 10:03 Vitamins (Sjr) - PO 1 tab DAILY ALEC Administration Pseudoephedrine/Triprolidine 1 combo 04/23/19 11:47 Actifed - PO TID PRN NASAL CONGESTION Thiamine HCl 100 mg 04/23/19 22:00 05/02/19 21:36 Vitamin B1 - PO 100 mg HS ALEC Administration Medication(s) Change(s): Yes. Current Side Effect: No Lab tests ordered: No Lab tests reviewed: Yes Provider note:: Patient reports receiving remeron 30mg while receiving treatment at residential program at [place], [place] five months ago. Stated to commercial lines underwriter that she felt satisifed with remeron 30mg. States that it made her mood stable and her sleep was sufficient. Will d/c Remeron 15mg HS. Will order Remeron 30mg HS. Benefits and side effects discussed. Verbal consent given. Total face to face time:: 25 Mental Status Exam - Mental Status Exam Alert and Oriented to: Time, Place, Person Cognitive Function: Good Patient Appearance: Well Groomed Mood: Euthymic Affect: Mood Congruent Patient Behavior: Cooperative Speech Pattern: Appropriate Voice Loudness: Normal Thought Process: Goal Oriented Thought Disorder: Not Present Hallucinations: Denies Suicidal Ideation: Denies Homicidal Ideation: Denies Insight/Judgement: Poor Sleep: Poorly Appetite: Fair Muscle strength/Tone: Normal Gait/Station: Normal Psychiatric Treatment Plan - Problem List (1) ADHD (attention deficit hyperactivity disorder) Current Visit: Yes (2) Substance induced mood disorder Current Visit: Yes (3) Substance-induced sleep disorder Current Visit: Yes (4) Mood disorder Current Visit: Yes (5) Opioid dependence Current Visit: Yes Qualifiers: Substance use status: uncomplicated Qualified Code(s): F11.20 - Opioid dependence, uncomplicated
[2019-05-03] MEDS: THIAMINE HCL 100 MG TABLET (FP) PO SCH (21:12)
[2019-05-03] MEDS ORDERED: MIRTAZAPINE 15 MG TABLET (FP) ONE (21:13)
[2019-05-03] MEDS ORDERED: MIRTAZAPINE 30 MG TABLET (FP) PO SCH (22:00)
[2019-05-04 07:10] VITALS: BP 129/79; PULSE 88
[2019-05-04] MEDS: PRENATAL VITAMINS W/ FOLIC ACID TABLET (FP) PO SCH (11:00)
[2019-05-04] MEDS: NICOTINE 21 MG/24 HOURS TOPICAL PATCH TD SCH (11:00)
[2019-05-04] MEDS: GABAPENTIN 100 MG CAPSULE (FP) PO SCH (11:00)
--- NOTE | 2019-05-04 11:04 | DS ---
[facility] Rehab Discharge Summary - [facility] Rehab Discharge Summary Admission Date: 04/23/19 Discharge Date: 05/04/19 - History Present History: Alcohol dependence, Cocaine dependence, Opioid dependence Pertinent Past History: 52 yo presents w/heroin use. Last detox in [place] 1[place]2 months ago. Was on Methadone @ [facility] and left 1 month ago. States dose was 25 mg. States left because relapsed. States just stopped showing up. Heroin use began at age 33. Current use 5-6 bags/day. Nasal x 3 weeks. Has a Narcan kit Nicotine use began at age 18's. Currently smokes 4-5 cig/day Alcohol use began at age 18. Drinks 4-5 - 12 oz beers daily. PMHX: RPR + (medicated), PPD+; CXR @ [facility]: 02/19/18: Neg. States had a CXR 1 mth ago - wnl. EK02/07/18: Abnormal. MHHx: Anxiety. Insomnia. Depression. On MH meds. Sees a Psych in community. Denies thoughts of harming self or others. Longest period of sobriety two years. Denies hx of seizure or blackouts or overdose. 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 Was adherent to her medication regimen and treatment plan. She had no acute medical problems during her stay in rehab. - Medication Discharge Medications: Ambulatory Orders Quetiapine Fumarate [Seroquel] 200 mg PO HS 04/23/19 - Medication-Assisted Treatment (MAT) Medication-Assisted Treatment (MAT): No - Discharge Instructions Diet, activity, other medical instructions: Diet: as tolerated Activity: as tolerated Other medical instructions: Please follow up with aftercare referral. - Diagnosis (1) Opioid dependence Current Visit: Yes Status: Chronic Qualifiers: Substance use status: uncomplicated Qualified Code(s): F11.20 - Opioid dependence, uncomplicated (2) Alcohol dependence with withdrawal Current Visit: No Status: Chronic Qualifiers: Complication of substance-induced condition: uncomplicated Qualified Code(s ): F10.230 - Alcohol dependence with withdrawal, uncomplicated - Follow-up Referral Minutes to complete discharge: 20 - AMA Did Patient Leave Against Medical Advice: No
--- NOTE | 2019-05-04 11:37 | PN ---
[facility] Progress Note Note: Patient is discharged today. Scripts for 30 days supply of medications( Gabapentin 200 mg/bid, Rmeron 30 mg/hs) are electronically transmitted to [facility] at [address] [place], [place] [id number]
== END 2019-05-04 11:41 | disposition home or self-care (01) | DRG 772 ==
LOC: YASAS 12:01 → Y3E 12:02
PROVIDERS: ADMIT Neuromusculoskeletal Medicine & OMM; ATTEND Neuromusculoskeletal Medicine & OMM
PROC: HZ42ZZZ Group Counseling for Substance Abuse Treatment, Cognitive-Behavioral (ICD-10-PCS; principal; 2019-04-23)
DX: F11.20 Opioid dependence, uncomplicated (principal); F10.20 Alcohol dependence, uncomplicated; F17.210 Nicotine dependence, cigarettes, uncomplicated; F19.24 Other psychoactive substance dependence with psychoactive substance-induced mood disorder; F19.282 Other psychoactive substance dependence with psychoactive substance-induced sleep disorder; F39 Unspecified mood [affective] disorder; F90.9 Attention-deficit hyperactivity disorder, unspecified type; J45.909 Unspecified asthma, uncomplicated; R01.1 Cardiac murmur, unspecified; Z87.42 Personal history of other diseases of the female genital tract
CPT/HCPCS: 36415; 71046-TC-FY; 87389